=== PATIENT | male | born 1965 | race Caucasian/White ===

== ENCOUNTER → 2024-05-24 13:30 | Outpatient (BNVA) | payer MEDICARE, MEDICAID, SELFPAY | PROVIDERS: Visit Provider Nurse Practitioner Family | DX: E11.9 Type 2 diabetes mellitus without complications (principal); I10 Essential (primary) hypertension | CPT/HCPCS: 80053; 80061; 81000; 83036; 83721; 85025 ==

== ENCOUNTER → 2024-08-22 12:03 | Outpatient (BNVA) | payer MEDICARE, MEDICAID, SELFPAY | PROVIDERS: PCP Nurse Practitioner Family; Visit Provider Internal Medicine | DX: E11.9 Type 2 diabetes mellitus without complications (principal); K21.9 Gastro-esophageal reflux disease without esophagitis | CPT/HCPCS: 36415; 80053; 80061; 82044; 83036; 83721; 99204 ==

== ENCOUNTER 2024-11-29 11:03 | Outpatient (CLI) | payer OTHER, MEDICAID, SELFPAY ==
[2024-11-29 12:25] LABS: Estmated Average Glucose 212; Hemoglobin A1C 9.0 % (4.0-6.0)
[2024-11-29 12:39] LABS: Alanine Aminotransferase 42 U/L (0-41); Albumin Level 4.6 g/dL (3.5-5.2); Alkaline Phosphatase 91 U/L (40-130); Anion Gap 14.0 (5-19); Aspartate Amino Transferase 25 U/L (0-40); Blood Urea Nitrogen 11 mg/dL (6-20); Calcium 9.6 mg/dL (8.5-10.5); Carbon Dioxide 27 mmol/L (22-29); Chloride 99 mmol/L (98-107); Cholesterol 207 mg/dL (0-200); Globulin 3.0 g/dL (1.3-4.6); Glucose 354 mg/dL (65-115); HDL Cholesterol 22 mg/dL (60-100); Osmolality Calculated 296 mOsm/kg (285-295); Potassium 4.0 mmol/L (3.5-5.1); Sodium 136 mmol/L (136-145); Total Protein 7.6 g/dL (6.6-8.7)
[2024-11-29 12:43] LABS: Creatinine Urine, Random 70 mg/dL (39-259)
[2024-11-29 12:45] LABS: Microalbum Creatinine Ratio Ur 86 mg/dL (0-20)
[2024-11-29 13:16] LABS: Triglycerides 1262 mg/dL (0-150)
== END 2024-11-29 11:04 | disposition home or self-care (01) ==
LOC: LAB 11:06
PROVIDERS: PCP Nurse Practitioner Family; Visit Provider Internal Medicine
DX: E11.9 Type 2 diabetes mellitus without complications (principal); K21.9 Gastro-esophageal reflux disease without esophagitis
CPT/HCPCS: 36415; 80053; 80061; 82044; 83036; 83721; 99214